=== PATIENT | female | born 1980 | race African-American/Black ===

== ENCOUNTER 2016-10-20 09:58 | Emergency (ER) | payer SELFPAY ==
[2016-10-20] MEDS ORDERED: predniSONE 20 MG TAB ONE (10:35)
[2016-10-20] MEDS ORDERED: diphenhydrAMINE HCl 25 MG CAP ONE (10:35)
[2016-10-20] MEDS ORDERED: EPINEPHrine 1 MG/ML VIAL ONE (10:35)
--- NOTE | 2016-10-20 11:34 | PICIS ---
[facility] EMERGENCY RECORD TRIAGE (WedOct 20, 2016 10:08 JPAR) TRIAGE NOTES: bit by bee R lower leg, yesterday 5pm. (WedOct 20, 2016 10:08 JPAR) PATIENT: NAME: Divya Ross, AGE: 36, GENDER: female, : Wed1980, TIME OF GREET: WedOct 20, 2016 09:59, PREFERRED LANGUAGE: [place] Islander, ETHNICITY: Not or , ECODE BILLING MAP: [facility], SSN: [id number], Zip Code: [address], KG WEIGHT: 97.52, PHONE: , , , PERSON ID: [id number], PCP: Rachana Clancy /Aneesh. (WedOct 20, 2016 10:08 JPAR) COMPLAINT: RIGHT LEG PAIN/SWELLING. (WedOct 20, 2016 10:08 JPAR) ADMISSION: URGENCY: 4 Non Urgent, ADMISSION SOURCE: Home, TRANSPORT: CAR, BED: TRIAGE. (WedOct 20, 2016 10:08 JPAR) ASSESSMENT: Assessment: Bit by bee left lower leg yesterday, Symptoms began 16 hours, Symptoms began yesterday. (10:10 JPAR) PAIN: Patient complains of pain described as, aching, on a scale 0-10 patient rates pain as 7. (10:10 JPAR) SIRS SCORING: Heart Rate 55-109 (0), Temp range 96.8-101.1 (0), respiratory rate 12-24 (0), Mental Status altered: no (0), Infection or Suspected Infection: No. (10:10 JPAR) TRIAGE SCREENING: Patient denies suicidal ideation, Patient denies presence of domestic violence. (10:10 JPAR) PROVIDERS: TRIAGE NURSE: Contreras Juan RN. (WedOct 20, 2016 10:08 JPAR) VITAL SIGNS: BP 125/65, Pulse 88, Resp 18, Temp 97.8, (Oral), Pain 7, O2 Sat 99, Time 10/20/2016 10:06. (10:06 JPAR) PREVIOUS VISIT ALLERGIES: No Known Drug Allergies. (WedOct 20, 2016 10:08 JPAR) No Known Drug Allergies. (10:10 JPAR) KNOWN ALLERGIES No Known Drug Allergies CURRENT MEDICATIONS (10:08 JPAR) None VITAL SIGNS (10:06 JPAR) VITAL SIGNS: BP: 125/65, Pulse: 88, Resp: 18, Temp: 97.8 (Oral), Pain: 7, O2 sat: 99, Time: 10/20/2016 10:06. NURSING ASSESSMENT: EXTREMITY LOWER (10:08 JPAR) CONSTITUTIONAL: Patient arrives ambulatory, Gait steady, History obtained from patient, Patient appears comfortable, Patient cooperative, Patient alert, Oriented to person, place and time, Skin warm, Skin dry, Skin normal in color, Mucous membranes pink, Mucous membranes moist. PAIN: aching pain, itching pain, to the right lower leg, Onset of pain yesterday, on a &a-1R&a+25V*p+0X*z8339B*c202B*c15G*c2P*p-0X&a-25V&a+1R Name: Divya Ross : 1980 F36 MedRec: [id number] AcctNum: [id number] Prepared: WedOct 20, 2016 11:32 by Interface Page 1 of 7 pMD [facility] EMERGENCY RECORD scale 0-10 patient rates pain as 7. LEFT LOWER EXTREMITY: Left lower extremity assessment findings include capillary refill less than 2 seconds, Skin color normal, Skin temperature warm, Distal sensation intact, Muscle tone normal. RIGHT LOWER EXTREMITY: Right lower extremity assessment findings include capillary refill less than 2 seconds, Skin color normal, Skin temperature warm, Distal sensation intact, Muscle tone normal, muscle strength 4, +2 edema present, posterior tibia pulse is +3, dorsalis pedis pulse is +3, Inspection findings include swelling, to R lower leg, Redness and swelling to R calf. SAFETY: Side rails up, Cart/Stretcher in lowest position, Call light within reach, Hospital ID band on. NURSING PROCEDURE: DISCHARGE NOTE (11:20 JPAR) DISCHARGE: Patient discharged to home, ambulating without assistance, family driving, accompanied by other family member, Summary of Care printed/ provided, Patient requested and was provided an electronic copy of Discharge Instructions, Transition record given to patient, Discharge instructions given to patient, Simple or moderate discharge teaching performed, Prescriptions given and instructions on side effects given, Name of prescription(s) given: Epi Pen, Prednisone, Ultram, Medication reconciliation form given, Above person(s) verbalized understanding of discharge instructions and follow-up care, Patient treated and evaluated by physician. BELONGINGS: Belongings and valuables with patient at time of discharge include:, Belongings remain with patient, Valuables remain with patient. SAFETY: Side rails up, Cart/Stretcher in lowest position, Call light within reach, Hospital ID band on. NURSING PROCEDURE: TEACHING (11:15 ARISTEO) TEACHING: Discharge instructions given to patient, Simple or moderate teaching performed, Crutches training and return demonstration by patient. ORDER DETAILS Order Name: Miscellaneous Nurse Order(s), Status: Done, Time: 11:10 10/20/2016, User: ARISTEO, - Ordered for: MD West Andrea, - Entered by: MD West Andrea - WedOct 20, 2016 11:05, - Quantity: 1. MEDICATION ADMINISTRATION SUMMARY Drug Name: predniSONE oral, Dose Ordered: 60 mg, Route: Oral, Status: Given, Time: 10:42 10/20/2016, Drug Name: EPINEPHrine HCl (PF) injection, Dose Ordered: 0.5 mg, Route: Subcutaneous, Status: Given, Time: 10:42 10/20/2016, &a-1R&a+25V*p+0X*f8342M*c202B*c15G*c2P*p-0X&a-25V&a+1R Name: Divya Ross : 1980 F36 MedRec: [id number] AcctNum: [id number] Prepared: WedOct 20, 2016 11:32 by Interface Page 2 of 7 pMD [facility] EMERGENCY RECORD Drug Name: Banophen, Dose Ordered: 50 mg, Route: Oral, Status: Given, Time: 10:41 10/20/2016, Detailed record available in Medication Service section. MEDICATION SERVICE Banophen: Order: Banophen (diphenhydramine HCl) - Dose: 50 mg : Oral Ordered by: James West MD Entered by: James West MD WedOct 20, 2016 10:23 , Acknowledged by: Contreras Juan RN WedOct 20, 2016 10:34 Documented as given by: Contreras Juan RN WedOct 20, 2016 10:41 Patient, Medication, Dose, Route and Time verified prior to administration. Correct patient, time, route, dose and medication confirmed prior to administration, Patient advised of actions and side-effects prior to administration, Allergies confirmed and medications reviewed prior to administration, Patient in position of comfort, Side rails up, Cart in lowest position, Family at bedside, Call light in reach. EPINEPHrine HCl (PF) injection: Order: EPINEPHrine HCl (PF) injection (epinephrine HCl/preservative free) - Dose: 0.5 mg : Subcutaneous Ordered by: James West MD Entered by: James West MD WedOct 20, 2016 10:23 , Acknowledged by: Contreras Juan RN WedOct 20, 2016 10:34 Documented as given by: Contreras Juan RN WedOct 20, 2016 10:42 Patient, Medication, Dose, Route and Time verified prior to administration. Medication administered to left upper arm, Correct patient, time, route, dose and medication confirmed prior to administration, Patient advised of actions and side-effects prior to administration, Allergies confirmed and medications reviewed prior to administration, Advised not to ambulate without assistance, Patient in position of comfort, Side rails up, Cart in lowest position, Family at bedside, Call light in reach. : Follow Up : Response assessment performed, No signs or symptoms of allergic reaction noted, Site inspection shows, No swelling at administration site, No drainage at administration site, No bleeding at site, No bruising noted at site, Advised not to ambulate without assistance, Patient in position of comfort, Side rails up, Cart in lowest position, Family at bedside, Call light in reach. (11:20 JPAR) predniSONE oral: Order: predniSONE oral (prednisone) - Dose: 60 mg : Oral Ordered by: James West MD Entered by: James West MD WedOct 20, 2016 10:23 , Acknowledged by: Contreras Juan RN WedOct 20, 2016 10:34 Documented as given by: Contreras Juan RN WedOct 20, 2016 10:42 Patient, Medication, Dose, Route and Time verified prior to administration. Patient appears Awake and alert- acceptable, Correct patient, time, &a-1R&a+25V*p+0X*w2719L*c202B*c15G*c2P*p-0X&a-25V&a+1R Name: Divya Ross : 1980 F36 MedRec: [id number] AcctNum: [id number] Prepared: WedOct 20, 2016 11:32 by Interface Page 3 of 7 pMD [facility] EMERGENCY RECORD route, dose and medication confirmed prior to administration, Patient advised of actions and side-effects prior to administration, Allergies confirmed and medications reviewed prior to administration, Patient in position of comfort, Side rails up, Cart in lowest position, Family at bedside, Call light in reach. HPI BEE STING (11:19 AGRE) CHIEF COMPLAINT: Patient presents for evaluation of bee sting. HISTORIAN: History provided by patient, A BEE STUNG THE BACK OF HER RIGHT LEG YESTERDAY EVENING, CONTINUES TO HAVE SWELLING WHICH IS GETTING WORST AND HAS PAIN AND ITCHING. NO FEVER OR CHILLS, NO SOB, NO OTHER SYMPTOMS. LOCATION: Symptoms are localized, most severe to RIGHT POPLITEAL FOSSA. QUALITY: Pain is dull in nature, described as aching, described as throbbing. SEVERITY: Maximum severity of symptoms moderate, Currently symptoms are moderate. TIME COURSE: Gradual onset of symptoms, There has been no change in the patient's symptoms over time. ASSOCIATED WITH: No associated chest pain, No associated facial symptoms, No associated fever, Associated with itching, No associated local infection, Associated with localized swelling, No associated paresthesias, No associated shortness of breath, No associated throat tightness, Denies any other complaints. EXACERBATED BY: Patient's condition exacerbated by nothing. RELIEVED BY: Patient's condition relieved by nothing. ROS (11:21 AGRE) CONSTITUTIONAL: Historian denies chills, denies fever, denies lethargy, denies malaise. EYES: Historian denies eye pain, denies eye redness. ENT: Historian denies rhinorrhea, denies sinus pain, denies sore throat. CARDIOVASCULAR: Historian denies chest pain, denies dyspnea on exertion. RESPIRATORY: Historian denies cough, denies shortness of breath. GI: Historian denies abdominal pain, denies nausea, denies vomiting. MUSCULOSKELETAL: Historian denies back pain, denies neck pain. SKIN: Negative skin review of systems, Historian denies skin changes, denies skin lesions. NEUROLOGIC: Historian denies headache, denies mental status changes. PSYCHIATRIC: Negative psychiatric review of systems, Historian denies anxiety. PAST MEDICAL HISTORY (10:10 JPAR) MEDICAL HISTORY: Flu vaccine up to date, Tetanus immunization up to date, Pneumococcal vaccine not up to date, No past &a-1R&a+25V*p+0X*u3753K*c202B*c15G*c2P*p-0X&a-25V&a+1R Name: Divya Ross : 1980 F36 MedRec: [id number] AcctNum: [id number] Prepared: WedOct 20, 2016 11:32 by Interface Page 4 of 7 pMD [facility] EMERGENCY RECORD medical history, Pneumococcal vaccine not up to date, Flu vaccine up to date, Tetanus immunization up to date. FEMALE SURGICAL HISTORY: Surgical history of section, Date of surgery 2002, Surgical history of tubal ligation. PSYCHIATRIC HISTORY: No previous psychiatric history. SOCIAL HISTORY: Patient has no smoking history, Patient denies alcohol use, Patient denies drug use. PHYSICAL EXAM (11:21 AGRE) CONSTITUTIONAL: Vital signs reviewed, Patient afebrile, Patient appears non toxic, Patient appears pain free, Patient alert and oriented to person, place and time, NURSES NOTES REVIEWED. HEAD: Head exam included findings of head atraumatic, normocephalic. EYES: Eye exam included findings of eyelids normal to inspection, Extraocular muscles intact, Conjunctiva normal, Sclera normal. ENT: Ear exam normal, Nose exam normal, Mouth exam normal. NECK: Neck exam included findings of normal range of motion, no meningeal signs. RESPIRATORY CHEST: Respiratory exam included findings of no respiratory distress, Breath sounds clear, No wheezing, No rales, Chest exam included findings of chest movement symmetrical. CARDIOVASCULAR: Cardiovascular assessment normal, Cardiovascular exam included findings of heart rate regular rate and rhythm, Heart sounds normal. BACK: Back exam included findings of normal inspection, range of motion normal. UPPER EXTREMITY: Upper extremity exam included findings of inspection normal, Range of motion normal. LOWER EXTREMITY: Lower extremity exam included findings of inspection abnormal, Range of motion, Motor strength normal, Sensation intact, Pedal pulse normal, Itz's positive, Edema present, to the right lower extremity, +3, no calf tenderness, no palpable cords, MARKED SWELLING OF THE RLE WHICH IS 1.5 THE SIZE OF THE LEFT LEG. ERYTHEMA AND INDURATION OF THE POPLITEAL FOSSA AND ADJACENT TISSUE AREAS, ERYTHEMA OF THE POPLITEAL FOSSA AND OVER THE MEDIAL ASPECT OF THE KNEE EXTENDING ABOUT 5 CM ABOVE AND BELOW THE KNEE JOINT WITHOUT INDURATION OF THAT AREA. INCREASES WARMTH OF THE AREAS OF ERYTHEMA. DECREASED R.O.M. OF THE KNEE DUE TO SWELLING OF POPLITEAL AREA. NO SENSORY OR VASCULAR DEIFICTS OF THE LLE. ANKLE AND TOES EXAMS ALL WNL. NEURO: Neuro exam findings include patient oriented to person, place and time, Speech normal, Gait normal, Memory normal, Cranial nerves intact, no focal motor deficits. SKIN: Skin exam included findings of skin warm, dry, and normal in color. PSYCHIATRIC: Psychiatric exam normal, Normal affect. &a-1R&a+25V*p+0X*x1533G*c202B*c15G*c2P*p-0X&a-25V&a+1R Name: Divya Ross : 1980 F36 MedRec: [id number] AcctNum: [id number] Prepared: WedOct 20, 2016 11:32 by Interface Page 5 of 7 pMD [facility] EMERGENCY RECORD EVENTS TRANSFER: Triage to Emergency Triage. (10:08 JPAR) Removed from Emergency Triage. (11:25 JPAR) O2SAT INTERPRETATION (11:25 AGRE) O2SAT: Continuous pulse oximetry, Oxygen saturation 99%, on room air, Oxygen saturation interpretation: Normal, No intervention required. DOCTOR NOTES (11:25 AGRE) TEXT: PATIENT RECEIVED EPI, BENADRYL AND PREDNISONE. SHE REPORTED FEELING MUCH BETTER. THERE IS MINIMAL IMPROVEMENT OF THE SWELLING. SHE DENIES SOB AND HER VS ARE STABLE. DISCUSSED WITH HER THE FINDINGS ON EXAM, MANAGEMENT OF HER SYMPTOMS, NEED FOR CLOSE FOLLOW UP DUE TO RISK OF BLOOD CLOTS AND INFECTION. SHE WILL SEE HER PCP TOMORROW AND RETURN IF WORSENING. SHE EXPRESSED UNDERSTANDING AND AGREEMENT. PATIENT SAYS DOES NOT NEED PAIN MEDS AT THIS TIME AND THE MEDS SHE WAS GIVEN RELIEVED HER SYMPTOMS. PATIENT STATUS: Patient has improved since arrival to emergency department. PATIENT PLAN: The patient will be discharged. PROBLEM LIST No recorded problems DIAGNOSIS (11: AGRE) FINAL: PRIMARY: LEG SWELLING, ADDITIONAL: INSECT BITE. DISPOSITION PATIENT: Disposition Type: Discharge, Disposition: *Discharge Home, Condition: Improved. (: AGRE) Patient left the department. (11: JPAR) INSTRUCTION (11: AGRE) DISCHARGE: ALLERGIC REACTION, INSECT (GENERAL). FOLLOWUP: [facility], /[facility], [facility] [id number], . SPECIAL: KEEP THE LEG ELEVATED AND MINIMIZE WEIGHT BEARING FOR 4 DAYS. ICE PACKS TO THE BACK OF THE LEG FOR 20 MINUTES EVERY 4 HOURS WHILE AWAKE FOR 3 DAYS. BENADRYL 50 MG EVERY 6 HOURS FOR 4 DAYS, START THE PREDNISONE TOMORROW. USE THE EPI-PEN IF ACUTE SIGNS OF ALLERGIC REACTION. IN ADDITION TO THE PRESCRIPTION PAIN MEDICATIONS TAKE MOTRIN 600 MG EVERY 6 HOURS FOR INFLAMMATION AND PAIN. SEE YOUR PRIMARY CARE PHYSICIAN TOMORROW FOR RECHECK OF THE LEG. SEE A PHYSICIAN SOONER IF WORSENING OR IF NEW SYMPTOMS DEVELOP. PRESCRIPTION (11:08 AGRE) Ultram: TABLET : 50 mg : ORAL : Quantity: 1-2 Unit: tab(s) Route: ORAL Schedule: every 6 hours PRN Dispense: 20 &a-1R&a+25V*p+0X*h9575V*c202B*c15G*c2P*p-0X&a-25V&a+1R Name: Divya Ross : 1980 F36 MedRec: [id number] AcctNum: [id number] Prepared: Avi Oct 20, 2016 11:32 by Interface Page 6 of 7 pMD [facility] EMERGENCY RECORD May substitute. Refills: No Refills . NOTES: No Refills. predniSONE oral: TABLET : 50 mg : ORAL : Quantity: 1 Unit: tab(s) Route: ORAL Schedule: once a day (in the morning) Dispense: 5 Unit: tab(s) May substitute. Refills: No Refills . NOTES: ^s=No Refills No Refills. Epi E-Z Pen: PEN INJECTOR (EA) : 0.3 mg/0.3 mL (1:1,000) : INTRAMUSCULAR : Quantity: * Unit: Route: INTRAMUSCULAR Schedule: See Notes Dispense: 1 May substitute. Refills: No Refills . NOTES: Use as directed for severe allergic reaction. No Refills. IMAGING *SUPPLY CHARGE SHEET: Image captured from scanner. (11:21 JPAR) *DISCHARGE INSTRUCTIONS RECEIPT: Image captured from scanner. (11:21 JPAR) Page 2 added. Image captured from scanner. (11:21 JPAR) GREEN SHEET: Image captured from scanner. (11:22 JPAR) ADMIN DIGITAL SIGNATURE: NATHALIE Juan Jason. (11:25 JPAR) MD West Andrea. (11:28 AGRE) Moyer: AGRE=MD West Andrea JPAR=NATHALIE Juan Jason &a-1R&a+25V*p+0X*z5810Y*c202B*c15G*c2P*p-0X&a-25V&a+1R Name: Divya Ross : 1980 F36 MedRec: [id number] AcctNum: [id number] Prepared: Avi Oct 20, 2016 11:32 by Interface Page 7 of 7 pMD MTDD
== END 2016-10-20 11:20 | disposition home or self-care (01) ==
LOC: NAV ERS 09:58
DX: T63.441A Toxic effect of venom of bees, accidental (unintentional), initial encounter (principal); M79.89 Other specified soft tissue disorders
CPT/HCPCS: 96372; J0171; J7506

== ENCOUNTER 2016-11-19 21:24 | Emergency (ER) | payer SELFPAY | END 2016-11-19 22:30 | disposition home or self-care (01) | LOC: NAV ERS 21:24 | DX: J01.90 Acute sinusitis, unspecified (principal); J04.0 Acute laryngitis | CPT/HCPCS: 99283 ==

== ENCOUNTER 2016-12-07 09:34 | Emergency (ER) | payer SELFPAY ==
[2016-12-07] MEDS ORDERED: Ketorolac Tromethamine 30 MG/ML VIAL ONE (09:44)
[2016-12-07] MEDS ORDERED: Acetaminophen 500 MG TAB ONE (09:44)
[2016-12-07] MEDS ORDERED: Ondansetron HCl/PF 4 MG/2 ML Vial ONE (09:44)
[2016-12-07 10:31] LABS: ALT (SGPT) 15 U/L (0-55); AST (SGOT) 18 U/L (5-34); Albumin 3.6 g/dL (3.5-5.0); Alkaline Phosphatase 60 U/L (40-150); Anion Gap 14 mmol/L (10-20); BUN (Urea Nitrogen) 9 mg/dL (7.0-18.7); Bilirubin, Total 0.3 mg/dL (0.2-1.2); Calc. Creatinine Clearance 0 mL/min (70-130); Calcium 8.5 mg/dL (7.8-10.44); Carbon Dioxide 22 mmol/L (22-29); Chloride 104 mmol/L (98-107); Estimated GFR-MDRD Greater than 90; Glucose 97 mg/dL (70-105); Potassium 3.7 mmol/L (3.5-5.1); Protein, Total 7.6 g/dL (6.0-8.3); Sodium 136 mmol/L (136-145)
[2016-12-07 10:50] LABS: Hemoglobin 7.8 g/dL (12.0-16.0); Mean Corpuscular Hemoglobin 20.4 pg (27.0-31.0); Mean Platelet Volume 5.8 fL (7.4-10.4); Platelet Count 454 thou/uL (130-400); RBC Distribution Width 15.3 % (11.5-14.5); Red Blood Cell (RBC) Count 3.82 mill/uL (4.20-5.40)
[2016-12-07 10:51] LABS: Anisocytosis MODERATE=16-30 cells (100X) (0-5/hpf); Band 3 % (5-11); Hypochromia MODERATE=16-30 cells (100X) (0-5/hpf); Lymphocytes 7 % (21-51); MDiff Complete? YES; Microcytosis MODERATE=15-30 cells (100X) (0-5/hpf); Monocytes 2 % (0-10); Neutrophil 88 % (42-75)
--- NOTE | 2016-12-07 10:55 | RAD ---
CHEST 2 VIEWS: Date: 12/07/16 HISTORY: Cough. Congestion. Fever. FINDINGS: No comparison. The cardiac silhouette and pulmonary vasculature are unremarkable. Mediastinum is midline. There is no confluent air space consolidation, pneumothorax, or pleural fluid evident. IMPRESSION: No active cardiopulmonary abnormalities are demonstrated. POS: [facility]
== END 2016-12-07 11:25 | disposition home or self-care (01) ==
LOC: NAV ERS 09:34
DX: B34.9 Viral infection, unspecified (principal); D50.9 Iron deficiency anemia, unspecified
CPT/HCPCS: 36415; 71020; 80053; 85025; 96374; 96375; J1885; J2405

== ENCOUNTER 2018-10-30 16:07 | Emergency (ER) | payer SELFPAY | END 2018-10-30 16:42 | disposition home or self-care (01) | LOC: NAV ERS 16:07 | DX: S83.92XA Sprain of unspecified site of left knee, initial encounter (principal); X50.9XXA Other and unspecified overexertion or strenuous movements or postures, initial encounter | CPT/HCPCS: 99281 ==

== ENCOUNTER 2019-01-15 21:25 | Emergency (ER) | payer SELFPAY ==
[2019-01-15 22:11] LABS: Wet Prep Clue Cells Clue Cells PRESENT (None Seen); Wet Prep Trichomonas Trichomonas PRESENT (None Seen)
[2019-01-17 20:09] LABS: Chlamydia by PCR Not Detected (NotDetected); GC by PCR Not Detected (NotDetected)
== END 2019-01-15 23:05 | disposition home or self-care (01) ==
LOC: NAV ERS 21:25
DX: A59.01 Trichomonal vulvovaginitis (principal); N76.0 Acute vaginitis; A60.00 Herpesviral infection of urogenital system, unspecified
CPT/HCPCS: 87210; 87480; 87491; 87510; 87591; 87660; 99283

== ENCOUNTER → 2019-01-16 | Emergency (ER) | payer SELFPAY ==
[~2019-01-16] MED LIST: Ibuprofen 800 MG TAB ONE; Ondansetron ODT 4 MG TAB ONE
== END ==
LOC: NAV ERS 11:34
DX: R11.0 Nausea (principal)
CPT/HCPCS: 99283; Q0162

== ENCOUNTER 2020-03-21 00:33 | Emergency (ER) | payer OTHER ==
[2020-03-22 12:53] LABS: SARS-CoV-2 MS2 Positive; SARS-CoV-2 N Gene Negative; SARS-CoV-2 S Gene Negative; SARS-CoV-2 orf1ab Negative
== END 2020-03-21 01:05 | disposition home or self-care (01) ==
LOC: NAV ERS 00:33
DX: Z20.828 Contact with and (suspected) exposure to other viral communicable diseases (principal)
CPT/HCPCS: 87635; 99283; U0003

== ENCOUNTER 2021-03-16 22:29 | Emergency (ER) | payer OTHER ==
[2021-03-16] MEDS ORDERED: Ondansetron ODT 4 MG TAB ONE (23:01)
[2021-03-16 23:25] LABS: Bilirubin Negative (Negative); Blood, Urine Large (Negative); Clarity Slightly Cloudy (Clear); Glucose, Urine (Dipstick) Negative (Negative); Ketone, Urine Negative (Negative); Leukocyte Trace (Negative); Nitrite Negative (Negative); Protein, Urine (Dipstick) Negative (Neg-Trace); Specific Gravity, Urine 1.025 (1.005-1.030); pH, Urine 5.5 (5.0-9.0)
[2021-03-16 23:26] LABS: Pregnancy Test - Urine (BHCG) Negative (Negative)
[2021-03-16 23:27] LABS: Pregu Control Background? CLEAR/WHITE (CLR/WHITE); Pregu Control Bar Appear? YES (CONTROL BAR); Specific Gravity 1.025 (1.002-1.036)
[2021-03-16 23:34] LABS: ALT (SGPT) 21 U/L (8-55); AST (SGOT) 19 U/L (5-34); Albumin 3.8 g/dL (3.5-5.0); Alkaline Phosphatase 71 U/L (40-110); Anion Gap 12 mmol/L (10-20); BUN (Urea Nitrogen) 14 mg/dL (7.0-18.7); Bilirubin, Total 0.2 mg/dL (0.2-1.2); Calc. Creatinine Clearance 0 mL/min (70-130); Calcium 9.1 mg/dL (7.8-10.44); Carbon Dioxide 21 mmol/L (22-29); Chloride 109 mmol/L (98-107); Globulin 3.9 g/dL (2.4-3.5); Glucose 113 mg/dL (70-105); Potassium 3.9 mmol/L (3.5-5.1); Protein, Total 7.7 g/dL (6.0-8.3); Sodium 138 mmol/L (136-145)
[2021-03-16 23:35] LABS: #Eosinphils 0.2 thou/uL (0.0-0.7); #Lymphocytes 1.7 thou/uL (1.20-3.40); #Monocytes 0.6 thou/uL (0.11-0.59); #Neutrophils 2.3 thou/uL (1.40-6.50); %Basophils 0.6 % (0.0-1.0); %Eosinophils 4.3 % (0.0-10.0); %Lymphocytes 34.8 % (21.0-51.0); %Monocytes 11.9 % (0.0-10.0); %Neutrophils 48.3 % (42.0-75.0); Anisocytosis MODERATE=16-30 cells (100X) (0-5/hpf); Elliptocytes SLIGHT = 2-5 cells (100X) (0-1/hpf); Hemoglobin 8.6 g/dL (12.0-16.0); MDiff Complete? YES; Mean Corpuscular HGB CONC 28.7 g/dL (32.0-36.0); Mean Corpuscular Hemoglobin 18.8 pg (27.0-31.0); Mean Corpuscular Volume 65.6 fL (78.0-98.0); Mean Platelet Volume 5.9 fL (7.4-10.4); Microcytosis SLIGHT = 6-15 cells (100X) (0-5/hpf); Platelet Count 482 thou/uL (130-400); Platelet Morphology Comment Appears Adequate; RBC Distribution Width 16.2 % (11.5-14.5); Red Blood Cell (RBC) Count 4.58 mill/uL (4.20-5.40); White Blood Cell (WBC) Count 4.8 thou/uL (4.8-10.8)
[2021-03-16 23:38] LABS: RBC/HPF 21-50 HPF (0-3); Squamous Epithelial 0-3 HPF (0-3)
== END 2021-03-16 23:20 | disposition home or self-care (01) ==
LOC: NAV ERS 22:29
DX: R11.2 Nausea with vomiting, unspecified (principal); D50.9 Iron deficiency anemia, unspecified
CPT/HCPCS: 80053; 81003; 81015; 81025; 85025; 99284; Q0162

== ENCOUNTER 2021-05-20 18:53 | Emergency (ER) | payer OTHER ==
[2021-05-21 16:19] LABS: SARS-CoV-2 PCR by NAA DETECTED (NotDetected)
== END 2021-05-20 19:28 | disposition home or self-care (01) ==
LOC: NAV ERS 18:53
DX: U07.1 COVID-19 (principal); R04.0 Epistaxis
CPT/HCPCS: 99283; U0003; U0005

== ENCOUNTER 2022-01-26 16:08 | Emergency (ER) | payer SELFPAY ==
[2022-01-26] MEDS ORDERED: Morphine 4 MG/ML VIAL ONE (16:34)
[2022-01-26] MEDS ORDERED: Ketorolac Tromethamine 30 MG/ML VIAL ONE (16:34)
[2022-01-26] MEDS ORDERED: Ondansetron PF 4 MG/2 ML Vial ONE (16:34)
[2022-01-26 16:52] LABS: BHCG - Serum Negative (NEGATIVE); Pregs Control Bar Appear? YES (CONTROL BAR)
[2022-01-26 16:59] LABS: ALT (SGPT) 31 U/L (8-55); AST (SGOT) 25 U/L (5-34); Albumin 3.9 g/dL (3.5-5.0); Alkaline Phosphatase 125 U/L (40-110); Anion Gap 17 mmol/L (10-20); BUN (Urea Nitrogen) 11 mg/dL (7.0-18.7); Bilirubin, Total 0.2 mg/dL (0.2-1.2); Calc. Creatinine Clearance 0 mL/min (70-130); Calcium 9.9 mg/dL (7.8-10.44); Carbon Dioxide 21 mmol/L (22-29); Chloride 107 mmol/L (98-107); Glucose 108 mg/dL (70-105); Potassium 4.3 mmol/L (3.5-5.1); Protein, Total 7.9 g/dL (6.0-8.3); Sodium 141 mmol/L (136-145)
[2022-01-26 17:08] LABS: Bilirubin Negative (Negative); Blood, Urine Negative (Negative); Clarity Slightly Cloudy (Clear); Glucose, Urine (Dipstick) Negative (Negative); Ketone, Urine Negative (Negative); Leukocyte Small (Negative); Nitrite Negative (Negative); Protein, Urine (Dipstick) Negative (Neg-Trace); Specific Gravity, Urine 1.025 (1.005-1.030); pH, Urine 5.5 (5.0-9.0)
[2022-01-26 17:09] LABS: Amphetamine Detected (NotDetected); Bacteria/HPF 2+ HPF (None Seen); Barbiturates Screen Not Detected (NotDetected); Benzodiazepine Screen Not Detected (NotDetected); Cocaine Metabolite Screen Not Detected (NotDetected); Medtox Control Line Valid? VALID (VALID); Methadone Not Detected (NotDetected); Methamphetamine Detected (NotDetected); Opiate Screen Not Detected (NotDetected); Oxycodone Screen Not Detected (NotDetected); Phencyclidine (PCP) Not Detected (NotDetected); THC/Cannabinoid Screen Detected (NotDetected); Tricyclic Screen Not Detected (NotDetected)
[2022-01-26 17:15] LABS: #Basophils 0.1 thou/uL (0.0-0.2); #Eosinphils 0.3 thou/uL (0.0-0.7); #Lymphocytes 1.8 thou/uL (1.20-3.40); #Monocytes 0.5 thou/uL (0.11-0.59); #Neutrophils 2.2 thou/uL (1.40-6.50); %Basophils 1.7 % (0.0-1.0); %Eosinophils 6.4 % (0.0-10.0); %Lymphocytes 36.4 % (21.0-51.0); %Neutrophils 44.5 % (42.0-75.0); Hemoglobin 10.3 g/dL (12.0-16.0); Hypochromia SLIGHT = 6-15 cells (100X) (0-5/hpf); MDiff Complete? YES; Mean Corpuscular HGB CONC 29.8 g/dL (32.0-36.0); Mean Corpuscular Hemoglobin 22.4 pg (27.0-31.0); Mean Corpuscular Volume 75.4 fL (78.0-98.0); Mean Platelet Volume 7.6 fL (7.4-10.4); Platelet Count 363 thou/uL (130-400); Platelet Morphology Comment Appears Adequate; RBC Distribution Width 14.7 % (11.5-14.5); Red Blood Cell (RBC) Count 4.59 mill/uL (4.20-5.40); White Blood Cell (WBC) Count 4.9 thou/uL (4.8-10.8)
== END 2022-01-26 17:55 | disposition home or self-care (01) ==
LOC: NAV ERS 16:08
DX: M75.102 Unspecified rotator cuff tear or rupture of left shoulder, not specified as traumatic (principal); F19.10 Other psychoactive substance abuse, uncomplicated; R29.701 NIHSS score 1; R00.0 Tachycardia, unspecified
CPT/HCPCS: 36416; 71045; 80053; 80306; 81003; 81015; 84484; 84703; 85025; 93005; 94760; 96374; 96375; J1885; J2270; J2405

== ENCOUNTER 2022-11-08 17:57 | Emergency (ER) | payer SELFPAY ==
[2022-11-08] MEDS ORDERED: Ibuprofen 200 MG TAB ONE (20:00)
[2022-11-08] MEDS ORDERED: Penicillin V Potassium 250 MG TAB ONE (20:02)
== END 2022-11-08 20:05 | disposition home or self-care (01) ==
LOC: NAV ERS 17:57
DX: K04.4 Acute apical periodontitis of pulpal origin (principal); K02.9 Dental caries, unspecified
CPT/HCPCS: 99282

== ENCOUNTER 2022-11-19 03:24 | Emergency (ER) | payer SELFPAY ==
[2022-11-19 04:03] LABS: INR-International Normal Ratio 1.7; Prothrombin Time 21.1 sec (12.0-14.7)
[2022-11-19 04:08] LABS: %Basophils 1.4 % (0.0-1.0); %Eosinophils 1.4 % (0.0-10.0); %Lymphocytes 47.3 % (21.0-51.0); %Monocytes 4.9 % (0.0-10.0); Hemoglobin 11.1 g/dL (12.0-16.0); Mean Corpuscular HGB CONC 30.9 g/dL (32.0-36.0); Mean Corpuscular Hemoglobin 24.9 pg (27.0-31.0); Mean Corpuscular Volume 80.6 fl (78.0-98.0); Mean Platelet Volume 6.8 fL (7.4-10.4); Platelet Count 237 10x3/uL (130-400); RBC Distribution Width 13.9 % (11.5-14.5); Red Blood Cell (RBC) Count 4.33 mill/uL (4.20-5.40); White Blood Cell (WBC) Count 15.9 10x3/uL (4.8-10.8)
[2022-11-19 04:09] LABS: #Basophils 0.2 thou/uL (0.0-0.2); #Eosinphils 0.2 thou/uL (0.0-0.7); #Lymphocytes 7.5 thou/uL (1.20-3.40); #Monocytes 0.8 thou/uL (0.11-0.59); #Neutrophils 7.2 thou/uL (1.40-6.50)
[2022-11-19 04:12] LABS: ALT (SGPT) 44 U/L (8-55); AST (SGOT) 95 U/L (5-34); Albumin 2.8 g/dL (3.5-5.0); Alkaline Phosphatase 174 U/L (40-110); Anion Gap 30 mmol/L (10-20); BUN (Urea Nitrogen) 11 mg/dL (7.0-18.7); Bilirubin, Total 0.2 mg/dL (0.2-1.2); Calc. Creatinine Clearance 0 mL/min (70-130); Calcium 8.9 mg/dL (7.8-10.44); Carbon Dioxide 11 mmol/L (22-29); Chloride 108 mmol/L (98-107); Estimated GFR 78; Globulin 3.3 g/dL (2.4-3.5); Glucose 295 mg/dL (70-105); Potassium 4.8 mmol/L (3.5-5.1); Protein, Total 6.1 g/dL (6.0-8.3); Sodium 144 mmol/L (136-145)
[2022-11-19 04:15] LABS: Lactic Acid 14.5 mmol/L (0.5-2.2)
[2022-11-19 04:30] LABS: CKMB 26.4 ng/mL (0-6.6)
[2022-11-19] MEDS ORDERED: Sodium Chloride 0.9% 250 ML 250 ML ONE (06:49)
[2022-11-19] MEDS ORDERED: Sodium Chloride 0.9% 3,000 ML ONE (06:49)
[2022-11-19] MEDS ORDERED: DOPamine/D5W 400 mg/250 ml PREMIX ONE (09:00)
[2022-11-19] MEDS ORDERED: EPINEPHrine 1 MG/10 ML Abboject SYRINGE ONE (09:00)
[2022-11-19] MEDS ORDERED: Sodium Bicarb 50 MEQ/50 ML Abboject 8.4% SYRINGE ONE (09:00)
== END 2022-11-19 05:45 | disposition short-term general hospital (02) ==
LOC: NAV ERS 03:24
DX: I46.9 Cardiac arrest, cause unspecified (principal); J81.0 Acute pulmonary edema; I21.4 Non-ST elevation (NSTEMI) myocardial infarction; E87.20 Acidosis, unspecified; I49.01 Ventricular fibrillation
CPT/HCPCS: 36415; 80053; 82553; 83605; 84484; 85025; 85610; 85730; 92950; 99292; J0171; J1265; J7050